=== PATIENT | female | born 1975 | race Caucasian/White ===

== ENCOUNTER 2017-04-30 19:31 | Emergency (ER) | payer BC, OTHER ==
[~2017-04-30] VITALS: Ht 152.4 cm; Wt 74.2 kg
[~2017-04-30 19:31] MED LIST: CELE20TA PO; CYCL10TA PO; HYDR-3363 PO; MIRA33504 PO; NEUR100C PO; NEUR300C PO; PERCOCET PO; PRIL20CA9 PO; SING10TA32 PO; SKEL800T97 PO; ULTR50TA8 PO; VITA-112 PO; VITA250L PO; ZANA4CAP PO; ZANT1TAB PO; ZYRT10CA PO; xyzol PO
[2017-04-30] MEDS ORDERED: TOPA50TA8 PO (19:54)
[2017-04-30] MEDS ORDERED: SUMA100T2 PO (19:54)
[2017-04-30] MEDS ORDERED: NEUR100C PO (19:54)
[2017-04-30] MEDS ORDERED: PRED20TA PO (19:54)
[2017-04-30] MEDS ORDERED: ONDANSETRON 4MG/2ML VIAL (J2405) IV ONE (20:15)
[2017-04-30] MEDS ORDERED: MORPHINE 4 MG/ML 1ML SYRINGE IV ONE (20:15)
[2017-04-30 20:45] LABS: BASO # 0.1 K/mm3 (0.0-0.2); BASO % 0.9 % (0.0-1.0); EOS # 0.6 K/mm3 (0.0-0.50); EOS % 4.8 % (0.0-3.0); LARGE UNSTAINED CELL # 0.2 K/mm3 (0.0-0.4); LARGE UNSTAINED CELL % 1.7 % (0.0-4.0); LYMPH # 3.8 K/mm3 (1.5-4.5); LYMPH % 29.3 % (24.0-44.0); MEAN CORPUSCULAR HEMOGLOBIN 31.2 pg (27.0-33.0); MEAN CORPUSCULAR HGB CONC 33.3 g/dl (32.0-36.5); MEAN CORPUSCULAR VOLUME 93.5 fl (80.0-96.0); MONO # 0.7 K/mm3 (0.0-0.8); MONO % 5.9 % (0.0-5.0); NEUTROPHILS % 57.5 % (36.0-66.0); PLATELET COUNT, AUTOMATED 296 k/mm3 (150-450); RED CELL DISTRIBUTION WIDTH 13.2 % (11.5-14.5); WHITE BLOOD COUNT 12.2 K/mm3 (4.0-10.0)
[2017-04-30 21:03] LABS: ANION GAP 6 MEQ/L (8-16); BLOOD UREA NITROGEN 12 MG/DL (7-18); CALCIUM LEVEL 8.9 MG/DL (8.5-10.1); CARBON DIOXIDE LEVEL 22 MEQ/L (21-32); CHLORIDE LEVEL 113 MEQ/L (98-107); CREATININE FOR GFR 0.97 MG/DL (0.55-1.02); GLOMERULAR FILTRATION RATE > 60.0 (>60); GLUCOSE, FASTING 110 MG/DL (70-105); POTASSIUM SERUM 3.8 MEQ/L (3.5-5.1); SODIUM LEVEL 141 MEQ/L (136-145)
[2017-04-30] MEDS ORDERED: KETOROLAC 30 MG/ML VIAL (J1885) IV ONE (21:30)
--- NOTE | 2017-04-30 22:30 | REPUSA ---
Clinical history: Pain. Findings: Real-time transabdominal ultrasound images of the pelvis were obtained. An anteverted uteru s is noted, measuring 7.2 x 3.7 x 4.9 cm. The uterus demonstrates normal echotexture and echogenicity . The endometrial stripe measures 11 mm and is within normal limits. The right ovary measures 3.0 x 2 .3 x 2.0 cm. The left ovary measures 3.3 x 3.1 x 1.9 cm. No adnexal masses are seen. Color Doppler fl ow is seen within both ovaries. There is no evidence of free fluid. Impression: Unremarkable ultrasound examination of the pelvis.
[2017-04-30] MEDS ORDERED: OXYCODONE/APAP 5MG/325MG(BULK FOR ED) 1 TABLET PO ONE (22:45)
[2017-04-30] MEDS ORDERED: ONDANSETRON 4 MG ORAL DISINTEGRATING TAB (S0181) PO ONE (22:45)
[2017-04-30] MEDS ORDERED: ZOFR4TAB3 PO (22:46)
[2017-04-30] MEDS ORDERED: PERC5TAB12 PO (22:46)
[2017-04-30 22:55] VITALS: BP 120/80
== END 2017-04-30 23:09 | disposition home or self-care (01) ==
LOC: M ED 19:31
DX: R10.32 Left lower quadrant pain (principal); R11.0 Nausea; F17.210 Nicotine dependence, cigarettes, uncomplicated
CPT/HCPCS: 76856; 80048; 81001; 81025; 83690; 85025; 86140; 87086; 96374; 96375; 99283; J1885; J2405

== ENCOUNTER 2017-05-01 23:47 | Emergency (ER) | payer BC ==
[~2017-05-01] VITALS: Ht 152.4 cm; Wt 73.6 kg
[2017-05-01 23:47] VITALS: BP 108/71
[~2017-05-01 23:47] MED LIST changes: +PERC5TAB12 PO; +PRED20TA PO; +SUMA100T2 PO; +TOPA50TA8 PO; +ZOFR4TAB3 PO
[2017-05-02] MEDS ORDERED: KETOROLAC 30 MG/ML VIAL (J1885) IV ONE (02:15)
[2017-05-02 02:50] LABS: BASO # 0.1 K/mm3 (0.0-0.2); BASO % 0.6 % (0.0-1.0); EOS # 0.7 K/mm3 (0.0-0.50); EOS % 5.1 % (0.0-3.0); LARGE UNSTAINED CELL # 0.2 K/mm3 (0.0-0.4); LYMPH # 3.6 K/mm3 (1.5-4.5); LYMPH % 23.8 % (24.0-44.0); MEAN CORPUSCULAR HGB CONC 33.2 g/dl (32.0-36.5); MEAN CORPUSCULAR VOLUME 93.4 fl (80.0-96.0); MONO # 0.7 K/mm3 (0.0-0.8); NEUTROPHILS # 9.4 K/mm3 (1.8-7.7); NEUTROPHILS % 64.5 % (36.0-66.0); PLATELET COUNT, AUTOMATED 276 k/mm3 (150-450); RED CELL DISTRIBUTION WIDTH 13.1 % (11.5-14.5); WHITE BLOOD COUNT 14.5 K/mm3 (4.0-10.0)
[2017-05-02 03:07] LABS: ALBUMIN 3.5 GM/DL (3.2-5.2); ALBUMIN/GLOBULIN RATIO 1.13 (1.00-1.93); ALKALINE PHOSPHATASE 69 U/L (45-117); ALT/SGPT 18 U/L (12-78); AMYLASE 37 U/L (25-115); ANION GAP 4 MEQ/L (8-16); AST/SGOT 11 U/L (15-37); BILIRUBIN,DIRECT < 0.1 MG/DL (0.0-0.2); BILIRUBIN,TOTAL 0.3 MG/DL (0.2-1.0); BLOOD UREA NITROGEN 13 MG/DL (7-18); CALCIUM LEVEL 8.4 MG/DL (8.5-10.1); CARBON DIOXIDE LEVEL 25 MEQ/L (21-32); CHLORIDE LEVEL 112 MEQ/L (98-107); CREATININE FOR GFR 1.12 MG/DL (0.55-1.02); GLOMERULAR FILTRATION RATE 57.7 (>60); GLUCOSE, FASTING 83 MG/DL (70-105); POTASSIUM SERUM 4.3 MEQ/L (3.5-5.1); SODIUM LEVEL 141 MEQ/L (136-145); TOTAL PROTEIN 6.6 GM/DL (6.4-8.2)
[2017-05-02 04:26] LABS: CONTROL LINE UCG INT CTR LINE PRESENT
== END 2017-05-02 05:55 | disposition left against medical advice (07) ==
LOC: M ED 23:47
DX: R10.9 Unspecified abdominal pain (principal); F17.210 Nicotine dependence, cigarettes, uncomplicated
CPT/HCPCS: 80048; 80076; 81001; 82150; 83690; 84703; 85025; 87086; 96374; 99282; J1885

== ENCOUNTER 2018-04-13 11:51 | Day surgery (SDC) | payer OTHER ==
[2018-04-13] MEDS: NS 1,000 ML IV (12:10)
[2018-04-13] MEDS ORDERED: PROPOFOL 200 MG/20 ML VIAL As Ordered (13:20)
[2018-04-13] MEDS ORDERED: LIDOCAINE 2% INJ 100 MG/5 ML SYRINGE As Ordered (13:23)
[2018-04-13] MEDS ORDERED: fentaNYL 100 MCG/2 ML INJECTION (J3010) As Ordered (14:03)
== END 2018-04-13 14:51 | disposition home or self-care (01) ==
LOC: M OPP 11:51
DX: K59.00 Constipation, unspecified (principal); K64.8 Other hemorrhoids; R12 Heartburn; K31.7 Polyp of stomach and duodenum; K58.9 Irritable bowel syndrome, unspecified; K21.9 Gastro-esophageal reflux disease without esophagitis; M19.90 Unspecified osteoarthritis, unspecified site; M51.9 Unspecified thoracic, thoracolumbar and lumbosacral intervertebral disc disorder; F41.9 Anxiety disorder, unspecified; G43.909 Migraine, unspecified, not intractable, without status migrainosus; J45.909 Unspecified asthma, uncomplicated; D89.9 Disorder involving the immune mechanism, unspecified; F17.210 Nicotine dependence, cigarettes, uncomplicated; Z88.1 Allergy status to other antibiotic agents; Z79.899 Other long term (current) drug therapy; Z80.41 Family history of malignant neoplasm of ovary
CPT/HCPCS: 45378

== ENCOUNTER 2018-12-13 09:20 | Emergency (ER) | payer OTHER, SELFPAY ==
[~2018-12-13] VITALS: Ht 152.4 cm; Wt 69.5 kg
[~2018-12-13 09:20] MED LIST changes: +LEXA1TAB PO; +MEDR1VL IM; +MEGA1CAP3 PO; +VITA100067 PO; +XYZA5TAB2 PO; +ZANT150T15 PO; -ZANT1TAB PO; +ZOFR4TAB14 PO; -ZOFR4TAB3 PO
[2018-12-13] MEDS ORDERED: IBUP80TA PO (09:29)
[2018-12-13] MEDS ORDERED: SUMA100T2 (09:29)
[2018-12-13] MEDS ORDERED: GABA-843 (09:29)
[2018-12-13] MEDS ORDERED: KETOROLAC TROMETHAMINE 10 MG TAB PO ONE (09:45)
--- NOTE | 2018-12-13 10:27 | REP ---
Clinical: Recent trauma/fall with continued pain and swelling right lower extremity. Technique: Colvin scale and color Doppler evaluation using linear high frequency transducer. Findings: Ultrasound examination of the right lower extremity deep venous structures from the common femoral vein to the popliteal vein demonstrates normal compressibility flow and wave patterns in response to respiration and augmentation. There is no evidence for deep venous thrombosis. Fluid collection surrounding the measures 11.4 x 1.0 x 5.0 cm along the medial aspect and 7.6 x 1.0 x 3.3 cm along the lateral aspect which may reflect effusion and/or hematomas related to prior trauma. Impression: No evidence for deep venous thrombosis. Medial and lateral fluid collection surrounding the likely related to prior trauma. Physical examination and follow-up may be warranted. Electronically Signed by Jorge Hua MD 12/13/2018 10:18 A
[2018-12-13] MEDS ORDERED: KETO10TAB PO (10:42)
[2018-12-13 10:54] VITALS: BP 128/62
== END 2018-12-13 10:57 | disposition home or self-care (01) ==
LOC: M ED 09:20
DX: M25.561 Pain in right knee (principal); J45.909 Unspecified asthma, uncomplicated; K21.9 Gastro-esophageal reflux disease without esophagitis; R51 Headache; M54.9 Dorsalgia, unspecified; F41.9 Anxiety disorder, unspecified; F17.210 Nicotine dependence, cigarettes, uncomplicated; Z88.1 Allergy status to other antibiotic agents; Z88.5 Allergy status to narcotic agent; Z88.6 Allergy status to analgesic agent; Z79.899 Other long term (current) drug therapy

== ENCOUNTER 2020-02-01 15:29 | Emergency (ER) | payer OTHER, SELFPAY ==
[~2020-02-01] VITALS: Ht 152.4 cm; Wt 71.7 kg
[~2020-02-01 15:29] MED LIST changes: +CYCL-707 PO; -CYCL10TA PO; +GABA-843 PO; +IBUP80TA PO; +KETO10TAB PO; +SUMA100T2
[2020-02-01] MEDS ORDERED: TOPI50TA9 PO (15:38)
[2020-02-01] MEDS ORDERED: NS 1,000 ML IV ONE (16:00)
[2020-02-01] MEDS ORDERED: KETOROLAC 30 MG/ML 1ML VIAL (J1885 PER 15MG) IV ONE (16:00)
[2020-02-01] MEDS ORDERED: ONDANSETRON 4MG/2ML VIAL (J2405) IV ONE (16:15)
[2020-02-01 16:38] LABS: BASO # 0.1 10^3/uL (0.0-0.2); BASO % 0.6 % (0.0-1.0); EOS # 0.5 10^3/uL (0.0-0.5); EOS % 3.3 % (0.0-3.0); HEMATOCRIT 45.2 % (36.0-47.0); HEMOGLOBIN 14.8 g/dl (12.0-15.5); LYMPH # 3.6 10^3/uL (1.5-5.0); LYMPH % 22.9 % (24.0-44.0); MEAN CORPUSCULAR HEMOGLOBIN 31.6 pg (27.0-33.0); MEAN CORPUSCULAR HGB CONC 32.7 g/dl (32.0-36.5); MEAN CORPUSCULAR VOLUME 96.4 fl (80.0-96.0); MONO # 1.1 10^3/uL (0.0-0.8); NEUTROPHILS # 10.4 10^3/uL (1.5-8.5); NEUTROPHILS % 65.8 % (36.0-66.0); PLATELET COUNT, AUTOMATED 299 10^3/uL (150-450); RED BLOOD COUNT 4.69 10^6/uL (4.00-5.40); WHITE BLOOD COUNT 15.8 10^3/uL (4.0-10.0)
[2020-02-01 17:03] LABS: BLOOD UREA NITROGEN 9 MG/DL (7-18); CALCIUM LEVEL 8.4 MG/DL (8.5-10.1); CARBON DIOXIDE LEVEL 26 MEQ/L (21-32); CHLORIDE LEVEL 108 MEQ/L (98-107); CK-MB VALUE MASS < 1.0 NG/ML (<3.6); CPK CREATINE PHOSPHOKINASE 75 U/L (26-192); CREATININE FOR GFR 0.72 MG/DL (0.55-1.30); GLOMERULAR FILTRATION RATE > 60.0 (>58); GLUCOSE, FASTING 92 MG/DL (70-100); MB/CK RELATIVE INDEX 1.33 (< OR =4); POTASSIUM SERUM 3.9 MEQ/L (3.5-5.1); SODIUM LEVEL 139 MEQ/L (136-145); TROPONIN I < 0.02 NG/ML (< 0.10)
[2020-02-01 17:20] LABS: ERYTHROCYTE SEDIMENTATION RATE 5 mm/hr (0-20)
[2020-02-01 18:59] VITALS: BP 120/66
--- NOTE | 2020-02-02 20:27 | ECGEPIP ---
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
== END 2020-02-01 19:16 | disposition home or self-care (01) ==
LOC: M ED 15:29
DX: R51 Headache (principal); T58.11XA Toxic effect of carbon monoxide from utility gas, accidental (unintentional), initial encounter; Y92.89 Other specified places as the place of occurrence of the external cause; Y93.9 Activity, unspecified; Y99.0 Civilian activity done for income or pay; D12.6 Benign neoplasm of colon, unspecified; G43.909 Migraine, unspecified, not intractable, without status migrainosus; Z84.89 Family history of other specified conditions; Z79.899 Other long term (current) drug therapy; Z88.1 Allergy status to other antibiotic agents; Z88.5 Allergy status to narcotic agent
CPT/HCPCS: 80048; 82375; 82550; 82553; 84484; 85025; 85652; 86140; 93005; 94760; 96361; 96374; 96375; 99284; J1885; J2405

== ENCOUNTER 2020-02-07 12:00 | Emergency (ER) | payer OTHER ==
[~2020-02-07] VITALS: Ht 152.4 cm; Wt 69.5 kg
[~2020-02-07 12:00] MED LIST changes: +TOPI50TA9 PO
[2020-02-07] MEDS ORDERED: ACETAMINOPHEN 325 MG TAB PO ONE (15:00)
[2020-02-07 16:06] VITALS: BP 109/70
== END 2020-02-07 16:34 | disposition home or self-care (01) ==
LOC: M ED 12:00
DX: T58.91XA Toxic effect of carbon monoxide from unspecified source, accidental (unintentional), initial encounter (principal); R51 Headache; K21.9 Gastro-esophageal reflux disease without esophagitis; Z88.1 Allergy status to other antibiotic agents; Z88.8 Allergy status to other drugs, medicaments and biological substances; Y99.0 Civilian activity done for income or pay; Y92.9 Unspecified place or not applicable; Z79.899 Other long term (current) drug therapy

== ENCOUNTER → 2020-04-28 | Outpatient (CLI) | payer SELFPAY | LOC: M LABSMTC 11:08 | PROVIDERS: ATTEND Family Medicine | DX: Z03.818 Encounter for observation for suspected exposure to other biological agents ruled out (principal); Z11.59 Encounter for screening for other viral diseases ==

== ENCOUNTER → 2020-08-06 | Outpatient (CLI) | payer SELFPAY | LOC: M LABSMTC 09:41 | PROVIDERS: ATTEND Family Medicine | DX: Z20.828 Contact with and (suspected) exposure to other viral communicable diseases (principal) | CPT/HCPCS: C9803; U0003 ==

== ENCOUNTER → 2020-10-30 | Outpatient (CLI) | payer OTHER, SELFPAY ==
[~2020-10-30] MED LIST changes: +GABA-282 PO; -GABA-843 PO
== END ==
LOC: M LABSMTC 12:53
PROVIDERS: ATTEND Family Medicine
DX: Z20.822 Contact with and (suspected) exposure to COVID-19 (principal)